=== PATIENT | male | born 1955 | race Caucasian/White ===

== ENCOUNTER 2024-02-27 01:45 | Day surgery (SDC) | payer MEDICARE, SELFPAY ==
[2024-02-20 10:26] VITALS: BMI 26.4
--- NOTE | 2024-02-20 15:34 | PC.NURSE ---
Spoke with patient regarding medications. Pt. verbalizes understanding that the last dose of ELIQUIS is to be taken on 02/24/2024 and the Endoscopist will instruct them when to restart after the procedure.
[2024-02-27 06:40] VITALS: BP 119/73; PULSE 68; RESP 68; TEMP 36.2; O2SAT 97; BMI 27.3
[2024-02-27] MEDS: LACTATED RINGERS 1,000 ML 150 ML IV CONT (06:59)
--- NOTE | 2024-02-27 07:37 | P.PNAN_ITS ---
Anes - Initial Pre Proc Eval Procedure: Operation Date: 02/27/24 08:00 Proposed Procedures p Screening Colonoscopy - Lion Castano MD Date/Time: 02/27/24 07:37 Surgeon: Lion Castano MD Pre Op Diagnosis: neoplasm screening Patient Data Age: 68 Gender: M Height: 1.8 m Weight: 89.1 kg Last Vital Signs Temp 97.1 F L 02/27/24 06:40 Pulse 68 02/27/24 06:40 Resp 68 H 02/27/24 06:40 BP 119/73 02/27/24 06:40 Pulse Ox 97 02/27/24 06:40 O2 Del Method Room Air 02/27/24 06:40 Allergies Allergy/AdvReac Type Severity Reaction Status Date / Time morphine Allergy Intermediate Hives Verified 02/27/24 06:46 Home Medications Medication Instructions Recorded Confirmed Type Adult Probiotic 1 cap PO DAILY 02/20/24 02/27/24 History apixaban 5 mg tablet (Eliquis) 5 mg PO BID 02/20/24 02/27/24 History carbidopa 25 mg-levodopa 100 mg 3 tablet PO QID 02/20/24 02/27/24 History tablet cetirizine 10 mg tablet 10 mg PO DAILY 02/20/24 02/27/24 History metoprolol succinate 25 mg 50 mg PO DAILY 02/20/24 02/27/24 History tablet,extended release 24 hr valsartan 80 mg tablet 80 mg PO DAILY 02/20/24 02/27/24 History Patient hx anesthesia problems: none Family hx anesthesia problems: none Results Review: All pre-operative results and documents have been reviewed as part of the pre- operative evaluation. [facility] Social History Social History Smoking status: Never smoker Alcohol intake: current Substance use: never Substance use type: does not use Living arrangements: with family Spiritual care concerns: No Anes - Eval Final PreProcedure Day of Procedure 02/27/24 07:37 Patient weight: normal Heart: regular rate and rhythm Lungs: clear to auscultation Airway: Mallampati scale class II Neurological: alert and oriented Last oral intake: >/= 8 hours ASA classification: III Emergent: no Anesthetic plan: proceed Anesthesia type and monitoring: general GIVS and standard monitoring Results Review: All pre-operative results and documents have been reviewed as part of the pre- operative evaluation. Informed Consent: The patient's anesthetic plan and its attendant risks and benefits were discussed with the patient/family/POA. Questions were solicited and answers provided to the satisfaction of the patient/family/POA.
--- NOTE | 2024-02-27 07:43 | PM.HPGS ---
History of Present Illness History of Present Illness Consent: Risks, benefits, and alternatives have been discussed and questions answered. Patient agrees to proceed with procedure. Chief complaint: neoplasm screening Narrative: Guzman Salas is a 68 year old male here for screening colonoscopy, last one 2013 Review of Systems Review of Systems: All systems reviewed & are unremarkable except as noted in HPI and below PMFSH Past Medical History Medical History (Updated 02/27/24 @ 07:44 by Lino Castano MD) Colon cancer screening Social History Social History Smoking status: Never smoker Alcohol intake: current Substance use: never Substance use type: does not use Living arrangements: with family Spiritual care concerns: No Meds Home Medications and Allergies Home Medications Medication Instructions Recorded Confirmed Type Adult Probiotic 1 cap PO DAILY 02/20/24 02/27/24 History apixaban 5 mg tablet (Eliquis) 5 mg PO BID 02/20/24 02/27/24 History carbidopa 25 mg-levodopa 100 mg 3 tablet PO QID 02/20/24 02/27/24 History tablet cetirizine 10 mg tablet 10 mg PO DAILY 02/20/24 02/27/24 History metoprolol succinate 25 mg 50 mg PO DAILY 02/20/24 02/27/24 History tablet,extended release 24 hr valsartan 80 mg tablet 80 mg PO DAILY 02/20/24 02/27/24 History Allergies Allergy/AdvReac Type Severity Reaction Status Date / Time morphine Allergy Intermediate Hives Verified 02/27/24 06:46 Vital Signs Vital Signs - 24 hr 02/27/24 06:40 Temperature 97.1 F L Pulse Rate 68 Respiratory Rate 68 H Blood Pressure 119/73 Pulse Oximetry 97 Oxygen Delivery Room Air Exam Const: General: comfortable and no acute distress HENMT: Face/Nose/Sinus: Normal nares present Eyes: General: appearance normal, both eyes and all related structures Neck: Neck: no JVD Resp: Auscultation: clear to auscultation bilaterally Cardio: Rate: regular rate Rhythm: regular rhythm GI: Inspection: non-distended GI Palp: Yes Soft to palpation Skin: General skin exam: normal color Neuro: General: gait normal Speech: normal speech Extrem: General: normal to inspection Psych: Mental Status: mental status grossly normal Assessment and Plan Assessment and plan (1) Colon cancer screening: Code(s): Z12.11 - Encounter for screening for malignant neoplasm of colon Status: Acute Assessment and Plan: colonoscopy
[2024-02-27 08:10] VITALS: BP 116/75; PULSE 60; RESP 18; O2SAT 98
[2024-02-27 08:19] VITALS: BP 117/70; PULSE 60; RESP 18; O2SAT 98
[2024-02-27 08:29] VITALS: BP 129/73; PULSE 60; RESP 18; O2SAT 97
== END 2024-02-27 08:38 | disposition home or self-care (01) ==
PROVIDERS: PCP Family Medicine; Visit Provider Internal Medicine Gastroenterology
PROC: 0DJD8ZZ Inspection of Lower Intestinal Tract, Via Natural or Artificial Opening Endoscopic (ICD-10-PCS; CPT 45378; principal; 2024-02-27 08:00)
DX: Z12.11 Encounter for screening for malignant neoplasm of colon (principal); D12.2 Benign neoplasm of ascending colon; D12.5 Benign neoplasm of sigmoid colon; D12.4 Benign neoplasm of descending colon; K57.30 Diverticulosis of large intestine without perforation or abscess without bleeding; K64.8 Other hemorrhoids
CPT/HCPCS: 45380; 88305; J2001; J2704; J7120